=== PATIENT | male | born 1985 | race Hispanic/Latino ===

== ENCOUNTER 2023-05-01 13:00 | Emergency (ER) | payer OTHER ==
[2023-05-01] VITALS (15 sets, daily range): BP systolic 102–120; BP diastolic 55–78
[~2023-05-01] VITALS: Ht 175.3 cm; Wt 81.6 kg
[2023-05-01] MEDS ORDERED: HYDROCO/APAP1 TA9 PO (18:59)
== END 2023-05-01 20:00 | disposition home or self-care (01) | DRG 563 ==
LOC: ED 13:00
PROC: 2W3RX1Z Immobilization of Left Lower Leg using Splint (ICD-10-PCS; principal; 2023-05-01)
DX: S92.002A Unspecified fracture of left calcaneus, initial encounter for closed fracture (principal); W17.89XA Other fall from one level to another, initial encounter; Y92.89 Other specified places as the place of occurrence of the external cause; Y99.0 Civilian activity done for income or pay